=== PATIENT | male | born 1940 | race Caucasian/White ===

== ENCOUNTER → 2018-11-29 | Outpatient (CLI) | payer MEDICARE ==
--- NOTE | 2018-11-30 19:46 | ECHOF ---
Referral Reason:R06.09 Dyspnea on exertion MEASUREMENTS -------- HEIGHT: 182.9 cm WEIGHT: 86.2 kg BP: IVSd: 1.1 cm (0.6 - 1.1) LVIDd: 3.9 cm (3.9 - 5.3) LVPWd: 1.4 cm (0.6 - 1.1) IVSs: 1.4 cm LVIDs: 2.4 cm LVPWs: 1.5 cm RVIDd: 3.4 cm (< 3.3) LAESV Index (A-L): 25.42 ml/m Ao Diam: 3.1 cm (2.0 - 3.7) LA Diam: 3.9 cm (2.7 - 3.8) AV Cusp: 1.7 cm (1.5 - 2.6) EPSS: 0.5 cm MV E Tyson: 0.59 m/s MV A Tyson: 0.73 m/s MV E/A Ratio: 0.80 RAP: 5.00 mmHg RVSP: 32.43 mmHg MV EF SLOPE: 118.22 mm/s (70 - 150) MV EXCURSION: 17.01 mm (> 18.000) FINDINGS -------- Sinus rhythm. This was a technically adequate study. The left ventricular size is normal. There is mild concentric left ventricular hypertrophy. Overa ll left ventricular systolic function is normal with, an EF between 55 - 60 %. The diastolic fillin g pattern is normal for the age of the patient 8.18. The right ventricle is mildly enlarged. Moderator band is visualized in the right ventricular apex. Normal LA size by volume 22+/-6 ml/m2. RA appears enlarged. Interatrial and interventricular septum intact. Lipomatous hypertrophy of atrial septum. The aortic valve is trileaflet and appears structurally normal. There is no evidence of aortic regu rgitation. There is no evidence of aortic stenosis. Mild mitral annular calcification present. Mild mitral regurgitation is present. Mild tricuspid regurgitation present. There is borderline pulmonary hypertension. The right ventr icular systolic pressure, as measured by Doppler, is 32.43mmHg. Trace/mild (physiologic) pulmonic regurgitation. The aortic root size is normal. IVC Not well visulized. There is no pericardial effusion. CONCLUSIONS -------- 1. Sinus rhythm. 2. This was a technically adequate study. 3. The left ventricular size is normal. 4. There is mild concentric left ventricular hypertrophy. 5. Overall left ventricular systolic function is normal with, an EF between 55 - 60 %. 6. The diastolic filling pattern is normal for the age of the patient 8.18 7. The right ventricle is mildly enlarged. 8. Moderator band is visualized in the right ventricular apex. 9. Normal LA size by volume 22+/-6 ml/m2. 10. RA appears enlarged. 11. Interatrial and interventricular septum intact. 12. Lipomatous hypertrophy of atrial septum. 13. The aortic valve is trileaflet and appears structurally normal. 14. There is no evidence of aortic regurgitation. 15. There is no evidence of aortic stenosis. 16. Mild mitral annular calcification present. 17. Mild mitral regurgitation is present. 18. Mild tricuspid regurgitation present. 19. There is borderline pulmonary hypertension. 20. The right ventricular systolic pressure, as measured by Doppler, is 32.43mmHg. 21. Trace/mild (physiologic) pulmonic regurgitation. 22. The aortic root size is normal. 23. IVC Not well visulized. 24. There is no pericardial effusion. APPLICATIONS TRAINER: Bronwyn Packer RDCS
== END | disposition home or self-care (01) ==
LOC: RADECHMAIN 15:02
PROVIDERS: ATTEND Family Medicine
DX: I08.1 Rheumatic disorders of both mitral and tricuspid valves (principal)
CPT/HCPCS: 93306

== ENCOUNTER → 2019-03-30 | Outpatient (CLI) | payer MEDICARE ==
--- NOTE | 2019-03-30 08:41 | US ---
EXAMINATION TYPE: US duplex aorta DATE OF EXAM: 03/30/2019 COMPARISON: NONE CLINICAL HISTORY: Z13.9 SCREENING FOR AAA. Screening, no symptoms EXAM MEASUREMENTS: Abdominal Aorta: Proximal: not seen due to bowel gas Mid: 2.1 x 1.9cm Distal: 2.2 x 2.7cm Bifurcation: RT = 1.0cm LT = 0.9cm Due to bowel gas was unable to view proximal aorta, calcifications seen at distal aorta with increase in size noted. IMPRESSION: Nonvisualization of the proximal abdominal aorta due to overlying bowel gas. The mid aort a, distal aorta and aortoiliac bifurcations are all within normal limits without evidence of aortic a neurysm.
== END | disposition home or self-care (01) ==
LOC: RADUSWWP 07:47
PROVIDERS: ATTEND Family Medicine
DX: Z13.9 Encounter for screening, unspecified (principal); R14.3 Flatulence
CPT/HCPCS: 93979

== ENCOUNTER 2021-05-07 13:34 | Observation (INO) | payer MEDICARE ==
--- NOTE | 2021-05-07 13:50 | ED ---
Chest Pain HPI - General Stated Complaint: chest pain Time Seen by Provider: 05/07/21 13:34 Source: patient, EMS, RN notes reviewed - History of Present Illness Initial Comments: 81-year-old male with a history of COPD who presents by EMS from his doctor's office with complaints of chest pain. He currently has no chest pain he has been having episodes of sharp midsternal chest pain on and off for the past 2 days. This started 2 days ago at night he had 2/10 pain lasted about a minute. He has had intermittent episodes of this since then he went to his doctor's this morning an EKG performed and told he should go the hospital to get evaluated. No fevers chills nausea vomiting sweats no pain currently no history of heart disease that he is aware of no other current complaints no modifying factors MD Complaint: chest pain - Related Data Home Medications Medication Instructions Recorded Confirmed Allopurinol [Zyloprim] 100 mg PO DAILY 05/07/21 05/07/21 Cholecalciferol [Vitamin D3 (125 125 mcg PO HS 05/07/21 05/07/21 Mcg = 5000 Iu)] Omeprazole 40 mg PO DAILY 05/07/21 05/07/21 Pravastatin Sodium [Pravachol] 40 mg PO HS 05/07/21 05/07/21 Propranolol HCl 80 mg PO BID 05/07/21 05/07/21 Allergies Allergy/AdvReac Type Severity Reaction Status Date / Time No Known Allergies Allergy Verified 05/07/21 14:45 Review of Systems ROS Statement: Those systems with pertinent positive or pertinent negative responses have been documented in the HPI. ROS Other: All systems not noted in ROS Statement are negative. EKG Findings - EKG Results: EKG: interpreted by ERMD, sinus rhythm, normal axis, normal QRS, normal ST/T, no acute changes EKG shows: bradycardia (Bradycardia rate of 54 CO interval 208 QRS duration 72 QT/QTC 410/[address]-T wave changes) General Exam - General Exam Comments Initial Comments: This is a well developed well-nourished awake alert oriented times 3 male General appearance: alert, in no apparent distress Head exam: Present: atraumatic, normocephalic, normal inspection Eye exam: Present: normal appearance, PERRL, EOMI. Absent: scleral icterus, conjunctival injection, periorbital swelling ENT exam: Present: normal exam, mucous membranes moist Neck exam: Present: normal inspection, full ROM, other (No stridor JVD or bruits). Absent: tenderness, meningismus, lymphadenopathy Respiratory exam: Present: normal lung sounds bilaterally. Absent: respiratory distress, wheezes, rales, rhonchi, stridor, chest wall tenderness Cardiovascular Exam: Present: regular rate, normal rhythm, normal heart sounds. Absent: systolic murmur, diastolic murmur, rubs, gallop, clicks GI/Abdominal exam: Present: soft, normal bowel sounds. Absent: distended, tenderness, guarding, rebound, rigid, bruit, pulsatile mass Extremities exam: Present: normal inspection, full ROM, normal capillary refill. Absent: tenderness, pedal edema, joint swelling, calf tenderness Back exam: Present: normal inspection Neurological exam: Present: alert, oriented X3, CN II-XII intact Psychiatric exam: Present: normal affect, normal mood Skin exam: Present: warm, dry, intact, normal color. 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 Scans were negative for evidence of aortic disruption there is ectatic aorta noted. Due to the patient's presentation patient be admitted for evaluation for chest pain I did discuss the case with Dr. Aranda Disposition Clinical Impression: Chest pain Disposition: ADMITTED IP TO THIS HOSP Condition: Fair Referrals: Mendoza Briceño MD [Primary Care Provider] - 1-2 days
[2021-05-07 14:03] VITALS: TEMP 98.1
[2021-05-07 14:11] LABS: Basophils # (A) 0.1 k/uL (0-0.2); Basophils % (A) 1 %; Eosinophils # (A) 0.2 k/uL (0-0.7); Eosinophils % (A) 3 %; HCT 45.9 % (39.0-53.0); HGB 14.4 gm/dL (13.0-17.5); Lymphocytes # (A) 2.5 k/uL (1.0-4.8); Lymphocytes % (A) 36 %; MCH 32.4 pg (25.0-35.0); MCHC 31.4 g/dL (31.0-37.0); MCV 103.3 fL (80.0-100.0); Macrocytosis Slight; Mean Platelet Volume 9.3; Monocytes # (A) 0.4 k/uL (0-1.0); Monocytes % (A) 5 %; Neutrophils # (A) 3.8 k/uL (1.3-7.7); Neutrophils % (A) 53 %; Platelet Count 175 k/uL (150-450); RBC 4.44 m/uL (4.30-5.90); RDW 13.7 % (11.5-15.5); WBC 7.1 k/uL (3.8-10.6)
--- NOTE | 2021-05-07 14:13 | XR ---
EXAMINATION TYPE: XR chest 2V DATE OF EXAM: 05/07/2021 COMPARISON: NONE TECHNIQUE: PA and lateral views submitted. HISTORY: Chest pain FINDINGS: The lungs are clear and there is no pneumothorax, pleural effusion, or focal pneumonia. Hyperinflati on. Biapical pleural thickening. No overt failure. Hypertrophic and degenerative changes of the spine . IMPRESSION: 1. COPD.
[2021-05-07 14:27] LABS: Calcium 9.3 mg/dL (8.4-10.2); Partial Thromboplastin Time 28.8 sec (22.0-30.0); Prothrombin Time 10.3 sec (9.0-12.0)
[2021-05-07 14:30] LABS: Albumin 4.2 g/dL (3.5-5.0); Magnesium 1.9 mg/dL (1.6-2.3); Total Protein 7.4 g/dL (6.3-8.2)
[2021-05-07] MEDS ORDERED: SODIUM CHLORIDE 0.9% 1,000 ML IV STA (14:59)
--- NOTE | 2021-05-07 17:03 | CT ---
EXAMINATION TYPE: CT angio thor/abd pel aorta DATE OF EXAM: 05/07/2021 COMPARISON: Ultrasound aorta March 30, 2019 HISTORY: Sharp chest pain and elevated d-dimer. CT DLP: 1694.9 mGycm. Automated Exposure Control for Dose Reduction was Utilized. CONTRAST: CTA scan of the thorax, abdomen and pelvis is performed without oral and without and with IV Contrast , patient injected with 80ml mL of Isovue 370. Dissection protocol. Three-D reconstructed images are created on a independent workstation and reviewed. FINDINGS: Vascular: Noncontrast images show no suspicious hyperdense material to suggest intramural hematoma. A scending aorta measures up to 3.7 cm in diameter. Normal 3 vessel origin from the aortic arch. Modera te peripheral mixed plaque in the arch extends into the descending aorta. No significant stenosis. Pa tent celiac artery and SMA without significant stenosis. Direct origin of small caliber artery possib le left gastric artery from the abdominal aorta which is normal variant. Patent bilateral single fany l arteries without significant stenosis. Patent SCAR. Moderate to severe mixed plaque in the infrarena l abdominal aorta without significant stenosis. Ectatic abdominal aorta up to 2.8 cm. No greater than 3.0 cm aneurysm. Patency through the iliac arteries and femoral arteries bilaterally without aneurys m, dissection, or significant stenosis. LUNGS: Mild linear scarring posterior right lung apex. Mild bibasilar linear scarring and/or atelect asis. MEDIASTINUM: There are no greater than 1 cm hilar or mediastinal lymph nodes. No cardiomegaly or pe ricardial effusion is seen. Moderate left atrial dilatation. LIVER/GB: Scattered round hypodense lesions felt to reflect benign thin-walled cysts. PANCREAS: No significant abnormality is seen. SPLEEN: No significant abnormality is seen. ADRENALS: No significant abnormality is seen. KIDNEYS: Some cortical thinning in both kidneys with scattered benign thin-walled cysts. Findings con sistent with product of chronic medical renal disease. Small outpouchings in the periphery of the siddharth dder wall suspicious for diverticula. BOWEL: Diverticula throughout the colon greatest at level sigmoid colon. No CT evidence for acute div erticulitis. GENITAL ORGANS: There is enlarged prostate consistent with BPH. Some posterior calcifications are pre sent. LYMPH NODES: No greater than 1cm abdominal or pelvic lymph nodes are appreciated. OSSEOUS STRUCTURES: Moderate disc space narrowing with vacuum disc phenomenon L5-S1 level. OTHER: No significant additional abnormality is seen. IMPRESSION: 1. No aortic dissection. Ectatic aorta is present. No acute findings seen to come for patient's symp toms of abrupt pain.
[2021-05-07] MEDS ORDERED: ACETAMINOPHEN TAB 325 MG TAB PO PRN (18:06)
[2021-05-07] MEDS ORDERED: ONDANSETRON 4 MG/2 ML VIAL IVP PRN (18:06)
[2021-05-07] MEDS ORDERED: MAG HYDROX/AL HYDROX/SIMETH 30 ML CUP PO PRN (18:06)
[2021-05-07] MEDS ORDERED: NALOXONE 0.4 MG/ML 1 ML VIAL IV PRN (18:06)
--- NOTE | 2021-05-07 18:11 | P.HPIM ---
History of Present Illness H&P Date: 05/07/21 81-year-old male with past medical history of hypertension admitted to the hospital with chest pain patient states that he has been having on and off chest pain for the last day or 2 but currently resolved Is not complaining of any shortness of breath or vomiting Review of systems 10 systems has been reviewed all negative and positive findings as per history of present illness Constitutional: No acute distress, conversant, pleasant Eyes: Anicteric sclerae, moist conjunctiva, no lid-lag PERRLA ENMT: NC/AT Oropharynx clear, no erythema, exudates Neck: Supple, FROM, no masses, or JVD No carotid bruits No thyromegaly Lungs: Clear to auscultation Clear to percussion Normal respiratory effort, no accessory muscle use Cardiovascular: Heart regular in rate and rhythm, No murmurs, gallops, or rubs No peripheral edema Abdominal: Soft Nontender, no guarding, rebound or rigidity Abdomen moving with respiration Normoactive bowel sounds No hepatomegaly, No splenomegaly No palpable mass No abdominal wall hernia noted Skin: Normal temperature, tone, texture, turgor No induration No subcutaneous nodules No rash, lesions No ulcers Extremities: No digital cyanosis No clubbing Pedal pulses intact and symmetrical Radial pulses intact and symmetrical Normal gait and station No calf tenderness Psychiatric:Alert and oriented to person, place and time Appropriate affect Intact judgement Neuro: Muscles Strength 5/5 in all 4 extremities Sensation to light touch grossly present throughout Cranial nerves II-XII grossly intact No focal sensory deficits Assessment and plan Chest pain with typical and atypical features would observe overnight no evidence of acute coronary syndrome at this time but will check d-dimer and troponins We'll consult cardiology Hypertension resume home medications Hyperlipidemia Past Medical History Past Medical History: Cancer History of Any Multi-Drug Resistant Organisms: None Reported Past Surgical History: Tonsillectomy Past Psychological History: No Psychological Hx Reported Smoking Status: Never smoker Past Alcohol Use History: None Reported Past Drug Use History: None Reported Medications and Allergies Home Medications Medication Instructions Recorded Confirmed Type Allopurinol [Zyloprim] 100 mg PO DAILY 05/07/21 05/07/21 History Cholecalciferol [Vitamin D3 (125 125 mcg PO HS 05/07/21 05/07/21 History Mcg = 5000 Iu)] Omeprazole 40 mg PO DAILY 05/07/21 05/07/21 History Pravastatin Sodium [Pravachol] 40 mg PO HS 05/07/21 05/07/21 History Propranolol HCl 80 mg PO BID 05/07/21 05/07/21 History Allergies Allergy/AdvReac Type Severity Reaction Status Date / Time No Known Allergies Allergy Verified 05/07/21 14:45 Physical Exam Vitals: Vital Signs Temp Pulse Pulse Resp BP Pulse Ox 05/07/21 15:04 51 L 19 165/99 95 05/07/21 14:02 55 L 05/07/21 13:41 98.1 F 54 L 18 174/92 100 Intake and Output 05/07/21 05/07/21 05/07/21 06:59 14:59 22:59 Other: Weight 91.172 kg Results CBC & Chem 7: 05/07/21 14:03 05/07/21 14:03 Labs: Abnormal Lab Results - Last 24 Hours (Table) 05/07/21 05/07/21 05/07/21 Range/Units 14:03 14:03 14:03 MCV 103.3 H (80.0-100.0) fL D-Dimer 0.90 H (<0.60) mg/L FEU Chloride 108 H (98-107) mmol/L BUN 23 H (9-20) mg/dL Creatinine 1.48 H (0.66-1.25) mg/dL
[2021-05-07] MEDS ORDERED: NITROGLYCERIN SL TABS 0.4 MG TAB SUBLINGUAL PRN (18:21)
[2021-05-07] MEDS ORDERED: CHOLECALCIFEROL 125 MCG (5000 IU) TABLET PO SCH (21:00)
[2021-05-07] MEDS ORDERED: PROPRANOLOL 10 MG TAB PO SCH (21:00)
[2021-05-07] MEDS ORDERED: PRAVASTATIN SODIUM 40 MG TAB PO SCH (21:00)
[2021-05-07] MEDS ORDERED: cloNIDine HCL 0.2 MG TAB PO PRN (23:19)
[2021-05-08] MEDS ORDERED: DOBUTamine DRIP for NUC MED 500 MG in DEXTROSE/WATER 1 250ML.BAG IV PRN (08:32)
[2021-05-08] MEDS ORDERED: ASPIRIN 81 MG PO SCH (09:00)
[2021-05-08] MEDS ORDERED: allopurinoL 100 MG TAB PO SCH (09:00)
[2021-05-08] MEDS ORDERED: PANTOPRAZOLE 40 MG TABLET PO SCH (09:00)
[2021-05-08] MEDS ORDERED: ASPIRIN 325 MG TAB PO SCH (09:00)
[2021-05-08] MEDS ORDERED: DOBUTamine DRIP for NUC MED 500 MG/250 ML BAG IV ONE (09:55)
--- NOTE | 2021-05-08 10:23 | P.STRESS ---
- Stress Test Note Stress Test Results/Findings: Exam Performed: dobutamine stress echo with con Exam Date: 05/08/21 Reason for Exam: CHEST PAIN Height: 6 ft Weight: 91.17 kg Protocol: DOBUTAMINE STRESS ECHO WITH CONTRAST Stage: 3 Duration of Exercise: 8:16 INFUSION TIME Resting Heart Rate: 55 Resting Blood Pressure: 156/87 Maximum Achieved Heart Rate: 140 Maximum Achieved Blood Pressure: 181/85 85% PMHR: 120 100% PMHR: 141 METS: NA Technologist Comment: LUMASON GIVEN Stress Test Results/Findings: This is 81-year-old gentleman with history of hypertension smoking was admitted to the hospital with complaints of chest pain. Stress data: Baseline EKG showed sinus rhythm with normal CO interval and QRS duration. Blood pressure at rest is 156/87 at pulse rate of 55. A standard dose of dobutamine was initiated and was titrated to maximum of 30 mics, achieving a peak heart rate of about 140 with a blood pressure of about 143/58. At peak. However, patient's blood pressure went as high as 182/67. A she did not experience any chest pain. Occasional PVCs were noted during dobutamine infusion. EKGs taken during exercise with the dobutamine showed about half to [address] depression in inferolateral leads which appears to be horizontal. Echo data: This was done using [employer]. Baseline echo images showed normal wall motion and thickening. Exercise echo images showed augmentation wall motion and thickening in all the segments. Final impression: #1. Borderline positive stress test with the dobutamine. Some of the ST-T changes could be related to hypertension #2. Negative dobutamine stress echo
--- NOTE | 2021-05-08 10:27 | P.CRDCN ---
History of Present Illness History of present illness: HISTORY OF PRESENTING ILLNESS This is a pleasant 81-year-old male past medical history significant for COPD, hypertension, dyslipidemia, tremors maintained on propranolol, former nicotine dependence quit 3 years ago. 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 We have been asked to see in consultation for chest pain. Patient presents emergency department with an episode of chest pain that occurred on Tuesday night. Patient states he woke up with a left sided sharp, stabbing chest pain that lasted about 12 minutes. He states he was aggravated by taking a deep breath. It was nonexertional, nonradiating. He denies any associated palpitations, shortness of breath, nausea, vomiting, diaphoresis. He denies any lower extremity edema, fatigue, weakness, dizziness, lightheadedness, near syncope or syncope, orthopnea or PND. He states the pain was brief, but had intermittent episodes yesterday as well. He went to his PCP, they performed an EKG and he was brought to the emergency department by EMS for further evaluation. He denies any history of CAD, AL, stroke, diabetes. He states he has had history of significant tremors he is maintained on propanolol and his tremors have signif icantly improved. DIAGNOSTICS EKG reveals sinus bradycardia, heart rate 54, no significant ST or T-wave abnormalities. Telemetry reviewed patient in sinus mechanism, heart rates 50-60s Chest xray hyperinflation of lungs Thoracic CT revealed ectatic abdominal aorta 2.8 cm. No aortic dissection, no acute findings. Laboratory reviewed, troponin negative 3, d-dimer 0.9, sodium 141, potassium 5.0, BUN 23, serum creatinine 1.4 (unknown baseline), magnesium 1.9, proBNP 316, COVID-19 negative, CBC unremarkable Current home medications include propanolol 10 mg twice a day, pravastatin 40 mg nightly, allopurinol, omeprazole, vitamin D3 REVIEW OF SYSTEMS At the time of my exam: CONSTITUTIONAL: Denies fever or chills. CARDIOVASCULAR: Denies chest pain, shortness of breath, orthopnea, PND or palp itations. RESPIRATORY: Denies cough. GASTROINTESTINAL: Denies abdominal pain, diarrhea, constipation, nausea or vomiting. MUSCULOSKELETAL: Denies myalgias. NEUROLOGIC: Denies numbness, tingling, headache or weakness. ENDOCRINE: Denies fatigue, weight change, polydipsia or polyurina. GENITOURINARY: Denies burning, hematuria or urgency with micturation. HEMATOLOGIC: Denies history of anemia or bleeding. PHYSICAL EXAMINATION Blood pressure 111/58, heart 63, afebrile, saturations 95% on room air CONSTITUTIONAL: No apparent distress. HEENT: Head is normocephalic. Pupils are equal, round. Sclerae anicteric. Mucous membranes of the mouth are moist. No JVD. No carotid bruit. CHEST EXAMINATION: Lungs are clear to auscultation. No chest wall tenderness is noted on palpation or with deep breathing. HEART EXAMINATION: Regular rate and rhythm. S1, S2 heard. No murmurs, gallops or rub. ABDOMEN: Soft, nontender. Positive bowel sounds. EXTREMITIES: 2+ peripheral pulses, no lower extremity edema and no calf tenderness. SKIN: warm, dry NEUROLOGIC EXAMINATION: Patient is awake, alert and oriented x3. ASSESSMENT Chest pain, atypical, acute coronary syndrome has been ruled out History of hypertension History of dyslipidemia History of COPD Former nicotine dependence PLAN An acute coronary event has been ruled out with no EKG evidence of ischemia and negative cardiac enzymes. Perform Dobutamine stress echo test to assess for stress induced cardiac ischemia. If abnormal will consider coronary angiography. If stress test is normal, ok to discharge from a cardiology perspective Patient may follow up outpatient with Dr. Red Thank you kindly for this consultation. Nurse Practitioner note has been reviewed, I agree with a documented findings and plan of care. Patient was seen and examined. Past Medical History Past Medical History: Cancer, COPD History of Any Multi-Drug Resistant Organisms: None Reported Past Surgical History: Tonsillectomy Past Anesthesia/Blood Transfusion Reactions: No Reported Reaction Past Psychological History: No Psychological Hx Reported Smoking Status: Never smoker Past Alcohol Use History: None Reported Past Drug Use History: None Reported Medications and Allergies Home Medications Medication Instructions Recorded Confirmed Type Allopurinol [Zyloprim] 100 mg PO DAILY 05/07/21 05/07/21 History Cholecalciferol [Vitamin D3 (125 125 mcg PO HS 05/07/21 05/07/21 History Mcg = 5000 Iu)] Omeprazole 40 mg PO DAILY 05/07/21 05/07/21 History Pravastatin Sodium [Pravachol] 40 mg PO HS 05/07/21 05/07/21 History Propranolol HCl 10 mg PO BID 05/07/21 05/07/21 History Allergies Allergy/AdvReac Type Severity Reaction Status Date / Time No Known Allergies Allergy Verified 05/07/21 14:45 Physical Exam Vitals: Vital Signs Temp Pulse Pulse Resp BP BP Pulse Ox 05/08/21 06:47 136/80 05/08/21 04:10 55 L 96/59 05/08/21 02:10 61 100/50 05/08/21 02:00 64 18 156/86 94 L 05/07/21 21:27 60 18 180/113 94 L 05/07/21 19:01 59 L 18 166/105 98 05/07/21 15:04 51 L 19 165/99 95 05/07/21 14:02 55 L 05/07/21 13:41 98.1 F 54 L 18 174/92 100 Intake and Output 05/07/21 05/08/21 05/08/21 22:59 06:59 14:59 Output Total 300 Balance -300 Output: Urine 300 Other: # Voids 1 1 Weight 91.172 kg Results 05/07/21 14:03 05/07/21 14:03 Cardiac Enzymes 05/07/21 05/07/21 05/07/21 Range/Units 14:03 14:03 19:01 AST 39 (17-59) U/L Troponin I <0.012 <0.012 (0.000-0.034) ng/mL 05/07/21 Range/Units 22:04 AST (17-59) U/L Troponin I <0.012 (0.000-0.034) ng/mL Coagulation 05/07/21 Range/Units 14:03 PT 10.3 (9.0-12.0) sec APTT 28.8 (22.0-30.0) sec CBC 05/07/21 Range/Units 14:03 WBC 7.1 (3.8-10.6) k/uL RBC 4.44 (4.30-5.90) m/uL Hgb 14.4 (13.0-17.5) gm/dL Hct 45.9 (39.0-53.0) % Plt Count 175 (150-450) k/uL Comprehensive Metabolic Panel 05/07/21 Range/Units 14:03 Sodium 141 (137-145) mmol/L Potassium 5.0 (3.5-5.1) mmol/L Chloride 108 H (98-107) mmol/L Carbon Dioxide 26 (22-30) mmol/L BUN 23 H (9-20) mg/dL Creatinine 1.48 H (0.66-1.25) mg/dL Glucose 91 (74-99) mg/dL Calcium 9.3 (8.4-10.2) mg/dL AST 39 (17-59) U/L ALT 29 (4-49) U/L Alkaline Phosphatase 86 (38-126) U/L Total Protein 7.4 (6.3-8.2) g/dL Albumin 4.2 (3.5-5.0) g/dL Current Medications Generic Name Dose Route Start Last Admin Trade Name Freq PRN Reason Stop Dose Admin Acetaminophen 650 mg 05/07/21 18:06 Acetaminophen Tab 325 Mg Tab PO Q6HR PRN Mild Pain or Fever > 100.5 Al Hydroxide/Mg Hydroxide 15 ml 05/07/21 18:06 Mag Hydrox/Al Hydrox/Simeth 30 Ml Cup PO Q6HR PRN Indigestion Allopurinol 100 mg 05/08/21 09:00 Allopurinol 100 Mg Tab PO DAILY [facility] Aspirin 325 mg 05/08/21 09:00 Aspirin 325 Mg Tab PO DAILY [facility] Cholecalciferol 125 mcg 05/07/21 21:00 05/07/21 21:27 Cholecalciferol 125 Mcg (5000 Iu) Tablet PO 125 mcg HS [facility] Administration Clonidine 0.2 mg 05/07/21 23:19 05/07/21 23:55 Clonidine Hcl 0.2 Mg Tab PO 0.2 mg QID PRN Administration Blood Pressure - High Naloxone HCl 0.2 mg 05/07/21 18:06 Naloxone 0.4 Mg/Ml 1 Ml Vial IV Q2M PRN Opioid Reversal Nitroglycerin 0.4 mg 05/07/21 18:21 Nitroglycerin Sl Tabs 0.4 Mg Tab SUBLINGUAL Q5M PRN Chest Pain Ondansetron HCl 4 mg 05/07/21 18:06 Ondansetron 4 Mg/2 Ml Vial IVP Q8HR PRN Nausea And Vomiting Pantoprazole Sodium 40 mg 05/08/21 09:00 Pantoprazole 40 Mg Tablet PO DAILY [facility] Pravastatin Sodium 40 mg 05/07/21 21:00 05/07/21 21:27 Pravastatin Sodium 40 Mg Tab PO 40 mg HS JAMEY Administration Propranolol HCl 10 mg 05/07/21 21:00 05/07/21 21:27 Propranolol 10 Mg Tab PO 10 mg BID JAMEY Administration Intake and Output 05/07/21 05/08/21 05/08/21 22:59 06:59 14:59 Output Total 300 Balance -300 Output: Urine 300 Other: # Voids 1 1 Weight 91.172 kg 05/07/21 14:03 05/07/21 14:03
--- NOTE | 2021-05-08 10:53 | P.DS ---
Providers Date of admission: 05/07/21 18:23 Expected date of discharge: 05/08/21 Attending physician: Percy Aranda MD Consults: 05/07/21 18:12 Consult Physician Routine Consulting Provider: Simone Culver Consult Reason/Comments: cp Do you want consulting provider notified?: Yes 05/07/21 18:21 Consult Physician Urgent Consulting Provider: Simone Culver Consult Reason/Comments: Chest pain Do you want consulting provider notified?: Yes, Notify in am Primary care physician: Mendoza Briceño [facility] Course: Patient admitted to the hospital with chest pain resolved patient doesn't have a stress test which was negative patient was cleared I cardiology to go home Constitutional: No acute distress, conversant, pleasant Eyes: Anicteric sclerae, moist conjunctiva, no lid-lag PERRLA ENMT: NC/AT Oropharynx clear, no erythema, exudates Neck: Supple, FROM, no masses, or JVD No carotid bruits No thyromegaly Lungs: Clear to auscultation Clear to percussion Normal respiratory effort, no accessory muscle use Cardiovascular: Heart regular in rate and rhythm, No murmurs, gallops, or rubs No peripheral edema Abdominal: Soft Nontender, no guarding, rebound or rigidity Abdomen moving with respiration Normoactive bowel sounds No hepatomegaly, No splenomegaly No palpable mass No abdominal wall hernia noted Skin: Normal temperature, tone, texture, turgor No induration No subcutaneous nodules No rash, lesions No ulcers Extremities: No digital cyanosis No clubbing Pedal pulses intact and symmetrical Radial pulses intact and symmetrical Normal gait and station No calf tenderness Psychiatric:Alert and oriented to person, place and time Appropriate affect Intact judgement Neuro: Muscles Strength 5/5 in all 4 extremities Sensation to light touch grossly present throughout Cranial nerves II-XII grossly intact No focal sensory deficits Discharge plan Chest pain resolved patient follow-up with cardiology and primary care physician as an outpatient stress test was negative Patient Condition at Discharge: Stable Plan - Discharge Summary Discharge Rx Participant: Yes New Discharge Prescriptions: Continue Cholecalciferol [Vitamin D3 (125 Mcg = 5000 Iu)] 125 mcg PO HS Omeprazole 40 mg PO DAILY Allopurinol [Zyloprim] 100 mg PO DAILY Pravastatin Sodium [Pravachol] 40 mg PO HS Propranolol HCl 10 mg PO BID Discharge Medication List Allopurinol [Zyloprim] 100 mg PO DAILY 05/07/21 [History] Cholecalciferol [Vitamin D3 (125 Mcg = 5000 Iu)] 125 mcg PO HS 05/07/21 [History] Omeprazole 40 mg PO DAILY 05/07/21 [History] Pravastatin Sodium [Pravachol] 40 mg PO HS 05/07/21 [History] Propranolol HCl 10 mg PO BID 05/07/21 [History] Follow up Appointment(s)/Referral(s): Lane Red MD [STAFF PHYSICIAN] - 4 Weeks Mendoza Briceño MD [Primary Care Provider] - 1-2 days Discharge Disposition: HOME SELF-CARE
--- NOTE | 2021-05-08 11:37 | ECHOS ---
Stress Test Results/Findings: Exam Performed: dobutamine stress echo with con Exam Date: 05/08/21 Reason for Exam: CHEST PAIN Height: 6 ft Weight: 91.17 kg Protocol: DOBUTAMINE STRESS ECHO WITH CONTRAST Stage: 3 Duration of Exercise: 8:16 INFUSION TIME Resting Heart Rate: 55 Resting Blood Pressure: 156/87 Maximum Achieved Heart Rate: 140 Maximum Achieved Blood Pressure: 181/85 85% PMHR: 120 100% PMHR: 141 METS: NA Technologist Comment: LUMASON GIVEN Stress Test Results/Findings: This is 81-year-old gentleman with history of hypertension smoking was admitted to the hospital with complaints of chest pain. Stress data: Baseline EKG showed sinus rhythm with normal FL interval and QRS duration. Blood pressure at rest is 156/87 at pulse rate of 55. A standard dose of dobutamine was initiated and was titrated to maximum of 30 mics, achieving a peak heart rate of about 140 with a blood pressure of about 143/58. At peak. However, patient's blood pressure went as high as 182/67. A she did not experience any chest pain. Occasional PVCs were noted during dobutamine infusion. EKGs taken during exercise with the dobutamine showed about half to [address] depression in inferolateral leads which appears to be horizontal. Echo data: This was done using [employer]. Baseline echo images showed normal wall motion and thickening. Exercise echo images showed augmentation wall motion and thickening in all the segments. Final impression: #1. Borderline positive stress test with dobutamine. Some of the ST-T changes could be related to hypertension #2. Negative dobutamine stress echo MTDD
[2021-05-08 12:11] VITALS: RESP 16
[2021-05-08 12:16] VITALS: BP 144/85; PULSE 61
[2021-05-08] MEDS ORDERED: PROPRANOLOL 10 MG TAB PO SCH (21:00)
== END 2021-05-08 11:15 | disposition home or self-care (01) ==
LOC: EC 13:34 → 6NMEDSUR 18:23 → 3SCARD 19:50
PROVIDERS: ADMIT Internal Medicine; ATTEND Internal Medicine
DX: R07.89 Other chest pain (principal); I10 Essential (primary) hypertension; E78.5 Hyperlipidemia, unspecified; J44.9 Chronic obstructive pulmonary disease, unspecified; R25.1 Tremor, unspecified; R79.1 Abnormal coagulation profile; R00.1 Bradycardia, unspecified; Z20.822 Contact with and (suspected) exposure to COVID-19; Z87.891 Personal history of nicotine dependence; Z85.9 Personal history of malignant neoplasm, unspecified; Z79.899 Other long term (current) drug therapy
CPT/HCPCS: 96360; 99285; 36415; 93005; 93351; 85379; 83880; 80053; 83690; 83735; 84484; 85025; 85610; 85730; 87635; 71046; 71275; 74174; G0378 ×3; J1250; Q9950; Q9967